=== PATIENT | female | born 1955 | race Caucasian/White ===

== ENCOUNTER 2021-10-15 08:16 | Outpatient (REF) | payer MEDICARE, MEDICAID, SELFPAY ==
[2021-10-15 11:50] LABS: Hemoglobin 13.7 g/dl (12.0-16.0); Mean Corpuscular HGB Conc 31.9 g/dl (31.0-35.0); Mean Corpuscular Hemoglobin 30.1 pg (27.0-33.0); Mean Corpuscular Volume 94.5 fL (80.0-98.0); Mean Platelet Volume 11.6 fL (9.4-12.3); Platelet Count 191 X10*3/uL (160-400); Red Blood Count 4.55 X10*6/uL (4.20-5.50); White Blood Count 6.6 X10*3/uL (4.8-10.8)
[2021-10-15 12:32] LABS: TSH reflex Free T4 5.19 uIU/mL (0.32-4.0); Vitamin D 25-OH Total 27.8 ng/mL (>30)
[2021-10-15 12:33] LABS: Alanine Aminotransferase 36 U/L (0-31); Albumin Level 4.2 g/dL (3.5-5.0); Alkaline Phosphatase 82 U/L (39-117); Anion Gap 13 (12-20); Aspartate Amino Transferase 29 U/L (5-31); Bilirubin Total 0.6 mg/dL (0.0-1.0); Blood Urea Nitrogen 24 mg/dL (9-16); Calcium 9.7 mg/dL (8.4-10.2); Carbon Dioxide 28 mmol/L (22-29); Chloride 105 mmol/L (96-108); Cholesterol 203 mg/dL; Estimated Glomerular Filt Rate > 60; Glucose Fasting 109 mg/dL (60-99); HDL Cholesterol 45 mg/dL; Iron 118 mcg/dL (30-160); LDL Cholesterol Calculated 139 mg/dl; Percent Iron Saturation 41 % (15-50); Potassium 4.4 mmol/L (3.3-5.1); Sodium 142 mmol/L (135-145); Total Iron Binding Capacity 287 mcg/dL (228-428); Total Protein 7.3 g/dL (6.5-8.0); Triglycerides 97 mg/dL; Unsaturated Iron Binding 169 ug/dL
[2021-10-15 12:42] LABS: Vitamin B12 654 pg/mL (200-900)
[2021-10-15 13:29] LABS: Free T4 (Free Thyroxine) 0.72 ng/dL (0.71-1.85)
== END 2021-10-15 08:17 | disposition home or self-care (01) ==
LOC: HO.HMGCLDS 08:16
PROVIDERS: PCP Internal Medicine; Visit Provider Internal Medicine
DX: G25.81 Restless legs syndrome (principal); I10 Essential (primary) hypertension; E55.9 Vitamin D deficiency, unspecified; E53.8 Deficiency of other specified B group vitamins
CPT/HCPCS: 36415; 80053; 80061; 82306; 82607; 83540; 84439; 84443; 85027

== ENCOUNTER 2022-05-16 13:04 | Outpatient (REF) | payer MEDICARE, MEDICAID, SELFPAY ==
[2022-05-16 14:12] LABS: Alanine Aminotransferase 27 U/L (0-31); Albumin Level 4.4 g/dL (3.5-5.0); Alkaline Phosphatase 92 U/L (39-117); Anion Gap 12 (12-20); Aspartate Amino Transferase 24 U/L (5-31); Bilirubin Total 0.7 mg/dL (0.0-1.0); Blood Urea Nitrogen 17 mg/dL (9-16); Calcium 9.7 mg/dL (8.4-10.2); Carbon Dioxide 28 mmol/L (22-29); Chloride 105 mmol/L (96-108); Cholesterol 194 mg/dL; Estimated Glomerular Filt Rate > 60; Glucose Fasting 106 mg/dL (60-99); HDL Cholesterol 47 mg/dL; LDL Cholesterol Calculated 134 mg/dl; Potassium 4.5 mmol/L (3.3-5.1); Sodium 140 mmol/L (135-145); Total Protein 7.5 g/dL (6.5-8.0); Triglycerides 67 mg/dL
[2022-05-16 14:33] LABS: TSH reflex Free T4 5.71 uIU/mL (0.32-4.0)
[2022-05-16 15:06] LABS: Erythrocyte Sedimentation Rate 7 MM/HR (0-20)
[2022-05-16 15:14] LABS: Free T4 (Free Thyroxine) 0.76 ng/dL (0.71-1.85)
[2022-05-18 12:52] LABS: Lyme Abs Screen <0.90 index
== END 2022-05-16 13:05 | disposition home or self-care (01) ==
LOC: HO.HMGCLDS 13:04
PROVIDERS: PCP Internal Medicine; Visit Provider Internal Medicine
DX: M25.562 Pain in left knee (principal); I10 Essential (primary) hypertension
CPT/HCPCS: 36415; 80053; 80061; 84439; 84443; 85652; 86617; 86618

== ENCOUNTER 2022-05-21 15:22 | Outpatient (REF) | payer MEDICARE, MEDICAID, SELFPAY ==
--- NOTE | ~2022-05-21 | XR_ITS ---
EXAMINATION: XR KNEE, LEFT CLINICAL INFORMATION: Pain COMPARISON: None TECHNIQUE: Four views of the left knee. FINDINGS: Bone alignment is normal. No fracture or dislocation is seen. There degenerative changes of the lateral femoral tibial joint with osteophyte formation. There is a moderate joint effusion. XR/XR knee LT 4V IMPRESSION: Degenerative changes of the lateral femoral tibial joint and joint effusion.
== END 2022-05-21 15:23 | disposition home or self-care (01) ==
LOC: HO.HMGCX 15:22
PROVIDERS: PCP Internal Medicine; Visit Provider Internal Medicine
DX: M25.562 Pain in left knee (principal)
CPT/HCPCS: 73564

== ENCOUNTER → 2022-06-20 14:36 | Outpatient (BNVA) | payer MEDICARE, MEDICAID, SELFPAY | PROVIDERS: PCP Internal Medicine; Visit Provider Physician Assistant | DX: M17.12 Unilateral primary osteoarthritis, left knee (principal) | CPT/HCPCS: 20610; 99202; J1040 ==

== ENCOUNTER → 2022-09-23 08:24 | Outpatient (BNVA) | payer MEDICARE, MEDICAID, SELFPAY | PROVIDERS: PCP Internal Medicine; Visit Provider Physician Assistant | DX: M17.12 Unilateral primary osteoarthritis, left knee (principal) | CPT/HCPCS: 20610; 99212; J1040 ==

== ENCOUNTER 2023-06-16 08:58 | Outpatient (AMB) | payer MEDICARE, MEDICAID, SELFPAY ==
--- NOTE | 2023-06-16 09:12 | MHC.OFFVIS ---
Intake Vital Signs 06/16/23 09:15 Height 5 ft 4.5 in Weight 233 lb BMI 39.4 Intake Visit Reasons: OV-OA of LT knee, last inj. 09/23/22 Intake Note: Cesia 68 yr old female presents today for her Left knee O.A pain S/P injection from 09/23/22. States injection lasted approx 2-3 months and would like to repeat injection today. Allergies ropinirole Adverse Reaction (Intermediate, Verified 06/16/23 09:15) fatique, weakness felt like fainting HPI OV-OA of LT knee, last inj. 09/23/22 HPI Details 68-year-old female who returns to the office today for a follow-up of left knee pain. She had her last injection on 09/23/22 which provided her relief for approximately 3 months. She would like to repeat the injection today. [facility] Medical History RLS (restless legs syndrome) Vitamin B 12 deficiency Vitamin D deficiency Social History Housing: House Patient Tobacco Use Status: Never used Tobacco e-Cigarette/Vaping Use: Never Used Current occupational status: retired Cognitive needs: No Hearing needs: No Vision needs: No Review of Systems Const All systems reviewed & are unremarkable except as noted in HPI and below Physical Exam Vital Signs: BMI result Body Mass Index 39.4 Extrem Other: Left knee skin intact, no erythema or joint effusion. Tenderness along the medial joint line. ROM full with crepitus. Negative steinmans. No ligamentous laxity. NVI. Office Procedures Joint Injection/Drain Joint Injection/Drain Primary Site: left knee Prep: site was prepped using aseptic technique, ethochloride spray was applied and injection warnings given Injected: 80 mg of, DepoMedrol, with 8 mL of, 1% plain lidocaine and in the joint Approach Used: anterolateral Procedure: The patient tolerated the procedure well and there was some relief with the local anesthesia Coding 94761 - Glenohumeral/Tronchanteric Bursa/Intraarticular Procedure code (CPT) selection complete Results Reviewed Results Reviewed: 06/16/23 09:13 Lidocaine HCl 2 % MPF [Xylocaine 2 % MPF] 5 ml .ROUTE .STK-MED ONE methylPREDNISolone acetate [DEPO-MedroL] 80 mg .ROUTE .STK-MED ONE Assessment & Plan Assessment & Plan (1) Osteoarthritis of left knee: Code(s): M17.12 - Unilateral primary osteoarthritis, left knee Plan We discussed options today which include steroid injection. They did consent to move forward with the injection, which was tolerated well. I recommended rest, ice and elevation and OTC anti-inflammatories PRN for discomfort. She is going to [place] in the next month and when she returns if she is continuing to have discomfort and limitations with activity, then she will contact the office to discuss other options which may include surgical intervention of her left knee. We will also obtain x-rays of her knee on the next visit. Patient Instructions: Scribed for Sherice Borrego PA-C, by Javed Fonseca senior medical director, on 06/16/2023 at 9:00 AM SHARLA. Laura, Sherice Borrego PA-C, have personally reviewed and agree with the information entered by the scribe. Coding Level of Care Code Est Pt Level 3 (33943) Diagnoses Osteoarthritis of left knee M17.12 CPT Codes Coding - Joint 7: 83508 - Glenohumeral/Tronchanteric Bursa/Intraarticular ([id number])
[2023-06-16 09:15] VITALS: BMI 39.4
== END 2023-06-16 09:46 | disposition home or self-care (01) ==
PROVIDERS: PCP Internal Medicine; Visit Provider Physician Assistant
DX: M17.12 Unilateral primary osteoarthritis, left knee (principal)
CPT/HCPCS: 20610; 99213

== ENCOUNTER → 2023-06-16 08:58 | Outpatient (BNVA) | payer MEDICARE, MEDICAID, SELFPAY | PROVIDERS: PCP Internal Medicine; Visit Provider Physician Assistant | DX: M17.12 Unilateral primary osteoarthritis, left knee (principal); G25.81 Restless legs syndrome | CPT/HCPCS: 20610; 99212; J1040 ==

== ENCOUNTER 2023-06-24 10:53 | Outpatient (AMB) | payer MEDICARE, MEDICAID, SELFPAY ==
--- NOTE | 2023-06-24 11:01 | MHC.PC.OV ---
Vital Signs 06/24/23 11:02 Height 5 ft 4.5 in Weight 229 lb BMI 38.7 BP 130/80 Blood Pressure Location Lt brachial Position Sitting Pulse 76 Pulse Source Pulse Oximeter Pulse Oximetry (%) 96 Oxygen Delivery Method Room Air Intake Visit Reasons: Left Knee Pain Intake Note: Pt is here today for a sick visit. Pt c/o L knee pain and swelling. Allergies ropinirole Adverse Reaction (Intermediate, Verified 06/24/23 11:05) fatique, weakness felt like fainting Medication List - Last Reconciled 06/24/23 by Elsie Aggarwal MD benazepril 40 mg PO DAILY hydrochlorothiazide 25 mg PO DAILY meloxicam 15 mg PO DAILY Tobacco use date assessed: 06/24/23 Fall risk assessment: No Falls in past year Last assessed Fall Risk: 06/24/23 Dental Screening Dental Screen Date: 06/24/23 Did you have a dental visit in the last 12 months?: Yes Did you have a dental problem in the last 6 months where you did not have access to dental care?: No Was dental information given to patient?: Patient has dentist HPI Left Knee Pain HPI Details Pt presents for f/u of hypertension. She has been getting cortisone injections for advanced L knee OA with temporary relief. Pt c/o chronic LBP worse when standing for a long time. Pt denies LE pain or weakness, change in bowel/bladder function. [facility] Medical History RLS (restless legs syndrome) Vitamin B 12 deficiency Vitamin D deficiency Family History (Updated 06/24/23 @ 11:08 by Nuvia Pineda [facility]) Father No problems noted. Mother No problems noted. Social History Housing: House Patient Tobacco Use Status: Never used Tobacco e-Cigarette/Vaping Use: Never Used Current occupational status: retired Cognitive needs: No Hearing needs: No Vision needs: No Questionnaire PHQ-9 Over the last 2 weeks, how often have you been bothered by any of the following problems? 1. Little interest or pleasure in doing things: not at all 2. Feeling down, depressed, or hopeless: not at all 3. Trouble falling or staying asleep, or sleeping too much: not at all 4. Feeling tired or having little energy: not at all 5. Poor appetite or overeating: not at all 6. Feeling bad about yourself - or that you are a failure or have let yourself or your family down: not at all 7. Trouble concentrating on things, such as reading the newspaper or watching television: not at all 8. Moving or speaking so slowly that other people could have noticed. Or the opposite - being so fidgety or restless that you have been moving around a lot more than usual: not at all 9. Thoughts that you would be better off or of hurting yourself in some way: not at all Total score: 0 Depression Screening Interpretation: Negative Source: Developed by Drs. Jesus Nguyen, Linda Herrera, Adis López and colleagues, with an educational ramón from [employer]. Thrive Questionnaire Date Thrive assessed: 06/24/23 I am a: Patient What is your living situation today?: I have a steady place to live Within the past 12 months, did the food you bought not last and you didn't have the money to get more?: Never true Within the past 12 months, did you worry whether your food would run out before you got money to buy more?: Never true Do you have trouble paying for medicines?: No Do you have trouble getting transportation to medical appointments?: No Do you have trouble paying your heating and electricity bill?: No Do you have trouble taking care of your child, family member or friend?: No Do you have trouble with day-to-day activities such as bathing, preparing meals, shopping, managing finances, etc.?: No Are you currently unemployed and looking for a job?: No Are you interested in more education?: No Please select the resources that you would like help with: None Currently or been in a relationship where the following occur: no concerns reported MALU-7 AMB Questionnaire MALU-7 Date MALU - 7 assessed: 06/24/23 Feeling nervous, anxious, or on edge: 0 = Not at all Not being able to stop or control worryin = Not at all Worrying too much about different things: 0 = Not at all Trouble relaxin = Not at all Being so restless that it is hard to sit still: 0 = Not at all Becoming easily annoyed or irritable: 0 = Not at all Feeling afraid as if something awful might happen: 0 = Not at all Total MALU-7 score (0-4 normal; 5-9 mild; 10-14 moderate; 15-21 severe): 0 Source: Developed by Drs. Jesus Nguyen, Linda Herrera, Adis López and colleagues, with an educational ramón from [employer]. Review of Systems Const All systems reviewed & are unremarkable except as noted in HPI and below Reports no additional complaints Eyes Reports no additional complaints ENT Reports no additional complaints Card Reports no additional complaints Resp Reports no additional complaints GI Reports no additional complaints Reports no additional complaints Physical exam (Primary Care) Vital Signs: Last Vital Signs Pulse 76 06/24/23 11:02 BP 130/80 06/24/23 11:02 Pulse Ox 96 06/24/23 11:02 Oxygen Delivery Method Room Air 06/24/23 11:02 BMI result Body Mass Index 38.7 Tobacco/Smoking Status: Tobacco use Status Tobacco use date assessed 06/24/23 06/24/23 11:08 Patient Tobacco Use Status Never used Tobacco 06/24/23 11:08 e-Cigarette/Vaping Use Never Used 06/24/23 11:02 PHQ-9: PHQ-9 Score PHQ-9: Total score 0 06/24/23 11:08 Depression Screening Interpretation: Negative Thrive Assessment: Date of Thrive Assessment Date Thrive assessed 06/24/23 06/24/23 11:08 Currently or been in a relationship where the following occur: no concerns reported Const General: no acute distress HENMN Head: Yes normal to inspection Eyes General: appearance normal, both eyes and all related structures Resp Effort & Inspection: normal respiratory effort Auscultation: clear to auscultation bilaterally Cardio Rhythm: regular rhythm Heart sounds: S1 normal heart sound present and S2 normal heart sound present GI Inspection: Yes normal to inspection Palpation (GI): Soft to palpation Percussion: Yes normal to percussion Back/Spine/Pelvis Other: DORM in L spine, paraspinal tenderness L>R, SLR 90 degrees estrella Assessment and Plan Assessment & Plan (1) Lumbar back pain: Code(s): M54.50 - Low back pain, unspecified Plan: check XR, PT RECOMMENDED, pt is going to [place] in Jul for 6 months (2) Essential hypertension: Code(s): I10 - Essential (primary) hypertension Plan: cont meds (3) Knee pain, left: Code(s): M25.562 - Pain in left knee Plan: f/u with Ortho. ? Hylan inj, WEIGHT LOSS DISCUSSED Orders: Orders XR lumbar spine 2-3V Today M54.50 - Low back pain, unspecified Comprehensive Gays. Panel Fast Today E53.8 - Deficiency of other specified B group vitamins, E55.9 - Vitamin D deficiency, unspecified, I10 - Essential (primary) hypertension, M54.50 - Low back pain, unspecified Complete Blood Count Auto Diff Today E53.8 - Deficiency of other specified B group vitamins, E55.9 - Vitamin D deficiency, unspecified, I10 - Essential (primary) hypertension, M54.50 - Low back pain, unspecified Lipid Panel Today E53.8 - Deficiency of other specified B group vitamins, E55.9 - Vitamin D deficiency, unspecified, I10 - Essential (primary) hypertension, M54.50 - Low back pain, unspecified TSH reflex Free T4 Today E53.8 - Deficiency of other specified B group vitamins, E55.9 - Vitamin D deficiency, unspecified, I10 - Essential (primary) hypertension, M54.50 - Low back pain, unspecified Medications: Refilled benazepril 40 mg PO DAILY 90 tabs 3RF hydrochlorothiazide 25 mg PO DAILY 90 tabs 3RF I10 - Essential (primary) hypertension meloxicam 15 mg PO DAILY 20 tabs 0RF Coding Level of Care Code Est Pt Level 4 (21359) Diagnoses Lumbar back pain M54.50 Essential hypertension I10 Knee pain, left M25.562
[2023-06-24 11:02] VITALS: BP 130/80; PULSE 76; O2SAT 96; BMI 38.7
== END 2023-06-24 11:41 | disposition home or self-care (01) ==
PROVIDERS: PCP Internal Medicine; Visit Provider Internal Medicine
DX: M54.50 Low back pain, unspecified (principal); I10 Essential (primary) hypertension; M25.562 Pain in left knee
CPT/HCPCS: 99214

== ENCOUNTER 2023-06-24 11:32 | Outpatient (REF) | payer MEDICARE, MEDICAID, SELFPAY ==
--- NOTE | ~2023-06-24 | XR_ITS ---
EXAMINATION: XR LUMBOSACRAL SPINE CLINICAL INFORMATION: Lower back pain. COMPARISON: None available. TECHNIQUE: AP and lateral views of the lumbar spine and lateral view of the lumbosacral junction. FINDINGS: There is bony demineralization. Vertebral body heights and alignment are normal. At T11-T12, there is moderate disc space narrowing, with disc phenomenon. At L2-L3, there is mild posterior disc space narrowing and a 3 mm retrolisthesis. At L3-L4, there is mild to moderate posterior disc space narrowing, with vacuum disc phenomenon. At L4-L5, there is mild posterior disc space narrowing, with vacuum disc phenomenon. No acute fracture or spondylolisthesis is seen. There is multi-level thoracolumbar spondylosis. There is facet arthropathy, most pronounced extending from L3-L4 through L5-S1. There are aortoiliac atherosclerotic calcifications. XR/XR lumbar spine 2-3V IMPRESSION: There is multi-level thoracolumbar degenerative disease, spondylosis and facet arthropathy. Degenerative disc disease is most pronounced at T11-T12, L3-L4 and L4-L5.
[2023-06-24 13:31] LABS: MANUAL DIFF FLAG NO
[2023-06-24 13:54] LABS: Basophils Percent Auto 0.5 % (0-2); Eosinophils Absolute Auto 0.2 X10*3/uL (0.0-0.4); Eosinophils Percent Auto 2.6 % (0-4); Hematocrit 44.2 % (37.0-47.0); Hemoglobin 14.4 g/dl (12.0-16.0); Imm Gran Abs Auto 0.03 X10*3/uL (0.00-0.03); Imm Gran Pct Auto 0.4 % (0.0-0.4); Lymphocytes Absolute Auto 3.3 X10*3/uL (1.2-4.9); Lymphocytes Percent Auto 43.7 % (20-40); Mean Corpuscular HGB Conc 32.6 g/dl (31.0-35.0); Mean Corpuscular Hemoglobin 30.2 pg (27.0-33.0); Mean Corpuscular Volume 92.7 fL (80.0-98.0); Mean Platelet Volume 11.6 fL (9.4-12.3); Monocytes Absolute Auto 0.8 X10*3/uL (0.1-1.2); Monocytes Percent Auto 10.2 % (2-11); Neutrophils Absolute Auto 3.2 x10*3/uL (2.0-8.3); Neutrophils Percent Auto 42.6 % (45-73); Platelet Count 210 X10*3/uL (160-400); Red Blood Count 4.77 X10*6/uL (4.20-5.50); Red Cell Distribution Width 13.1 % (11.0-16.0); White Blood Count 7.4 X10*3/uL (4.8-10.8)
[2023-06-24 14:38] LABS: Alanine Aminotransferase 22 U/L (0-31); Albumin Level 4.2 g/dL (3.5-5.0); Alkaline Phosphatase 80 U/L (39-117); Anion Gap 14 (12-20); Aspartate Amino Transferase 20 U/L (5-31); Bilirubin Total 0.7 mg/dL (0.0-1.0); Blood Urea Nitrogen 21 mg/dL (9-16); Calcium 10.1 mg/dL (8.4-10.2); Carbon Dioxide 30 mmol/L (22-29); Chloride 103 mmol/L (96-108); Cholesterol 193 mg/dL; Estimated Glomerular Filt Rate > 60; Glucose Fasting 96 mg/dL (60-99); HDL Cholesterol 50 mg/dL; LDL Cholesterol Calculated 127 mg/dl; Potassium 4.6 mmol/L (3.3-5.1); Sodium 142 mmol/L (135-145); Total Protein 7.7 g/dL (6.5-8.0); Triglycerides 83 mg/dL
[2023-06-24 15:32] LABS: Free T4 (Free Thyroxine) 0.75 ng/dL (0.71-1.85)
== END 2023-06-24 11:33 | disposition home or self-care (01) ==
LOC: HO.HMGCX 11:32
PROVIDERS: PCP Internal Medicine; Visit Provider Internal Medicine
DX: M54.50 Low back pain, unspecified (principal); E53.8 Deficiency of other specified B group vitamins; E55.9 Vitamin D deficiency, unspecified; I10 Essential (primary) hypertension
CPT/HCPCS: 36415; 72100; 80053; 80061; 84439; 84443; 85025

== ENCOUNTER 2023-08-04 10:33 | Outpatient (AMB) | payer MEDICARE, MEDICAID, SELFPAY ==
--- NOTE | 2023-08-04 10:44 | A.OFFVIS_ITS ---
Intake Vital Signs 08/04/23 10:58 Height 5 ft 4.5 in Weight 229 lb BMI 38.7 Intake Visit Reasons: OV - Left Knee Durolane Injection Intake Note: Cesia a 68 year old female who presents today for a left knee Durolane injection. Allergies ropinirole Adverse Reaction (Intermediate, Verified 08/04/23 10:58) fatique, weakness felt like fainting HPI OV - Left Knee Durolane Injection HPI Details 68-year-old female who returns to the [facility] today for a follow-up of left knee Durolane injection. [facility] Medical History RLS (restless legs syndrome) Vitamin B 12 deficiency Vitamin D deficiency Family History (Updated 06/24/23 @ 11:08 by Nuvia Pineda [facility]) Father No problems noted. Mother No problems noted. Social History Housing: House Patient Tobacco Use Status: Never used Tobacco e-Cigarette/Vaping Use: Never Used Current occupational status: retired Cognitive needs: No Hearing needs: No Vision needs: No Review of Systems Const All systems reviewed & are unremarkable except as noted in HPI and below Physical Exam Vital Signs: BMI result Body Mass Index 38.7 Extrem Other: Left knee skin intact, no erythema or joint effusion. Tenderness along the medial joint line. ROM full with crepitus. Negative steinmans. No ligamentous laxity. NVI. Office Procedures Joint Injection/Drain Joint Injection/Drain Details: Hyaluronate Sodium, Stabilized [Durolane] 60 mg INTRAARTIC .STK-MED ONE Primary Site: left knee Prep: site was prepped using aseptic technique, ethochloride spray was applied and injection warnings given Injected: in the joint Approach Used: anterolateral Procedure: The patient tolerated the procedure well and there was some relief with the local anesthesia Coding 39994 - Glenohumeral/Tronchanteric Bursa/Intraarticular Procedure code (CPT) selection complete Results Reviewed Results Reviewed: 08/04/23 10:43 Hyaluronate Sodium, Stabilized [Durolane] 60 mg INTRAARTIC .STK-MED ONE Assessment & Plan Assessment & Plan (1) Osteoarthritis of left knee: Code(s): M17.12 - Unilateral primary osteoarthritis, left knee Plan We discussed options today which include durolane injection. They did consent to move forward with the left knee durolane injection, which was tolerated well. I recommended rest, ice and elevation and OTC anti-inflammatories PRN for discomfort. If symptoms persist or worsens over the next 6-8 weeks, patient will contact the office, otherwise follow-up as needed. Patient Instructions: Scribed for Sherice Borrego PA-C, by Javed Fonseca medical professionals, on 08/04/2023 at 10:45 AM EST. I, Sherice Borrego PA-C, have personally reviewed and agree with the information entered by the scribe. Coding Level of Care Code Procedure Only Diagnoses Osteoarthritis of left knee M17.12 CPT Codes Coding - Joint 7: 42124 - Glenohumeral/Tronchanteric Bursa/Intraarticular ([id number])
[2023-08-04 10:58] VITALS: BMI 38.7
== END 2023-08-04 11:22 | disposition home or self-care (01) ==
PROVIDERS: PCP Internal Medicine; Visit Provider Physician Assistant
DX: M17.12 Unilateral primary osteoarthritis, left knee (principal)
CPT/HCPCS: 20610

== ENCOUNTER → 2023-08-04 10:33 | Outpatient (BNVA) | payer MEDICARE, MEDICAID, SELFPAY | PROVIDERS: PCP Internal Medicine; Visit Provider Physician Assistant | DX: M17.12 Unilateral primary osteoarthritis, left knee (principal) | CPT/HCPCS: 20610; J7318 ==

== ENCOUNTER 2024-02-24 11:44 | Outpatient (AMB) | payer MEDICARE, MEDICAID, SELFPAY ==
--- NOTE | 2024-02-24 12:15 | AM.OFFVISMDC ---
Intake Vital Signs 02/24/24 12:17 Weight 226 lb BP 120/80 Blood Pressure Location Lt brachial Position Sitting Pulse 68 Pulse Source Pulse Oximeter Pulse Oximetry (%) 98 Oxygen Delivery Method Room Air Intake Visit Reasons: SWV Allergies ropinirole Adverse Reaction (Intermediate, Verified 02/24/24 12:17) fatique, weakness felt like fainting Medication List - Last Reconciled 02/24/24 by Elsie Aggarwal MD benazepril 40 mg PO DAILY hydrochlorothiazide 25 mg PO DAILY meloxicam 15 mg PO DAILY Do you need a note to return to daycare/school/sports/work: No HPI SWV HPI Details Initiated the conversation about Advanced Directives. Advanced Directives help? patients prepare for current and future decisions about their medical treatment? and place of care. Discussed with patient that it is a process where a patients? current condition and prognosis are reviewed, their wishes for information? regarding their illness are elicited, and likely medical dilemmas are presented? and options discussed. The form can be amended as needed, reviewed yearly and? make changes as needed IPPE/AWV ? year old presents? for her ? Annual? Wellness Visit, initial visit.? Medical / Social History Reviewed? Past Medical History ?Yes? . ? [facility]? of Care / Care Team list updated ?Yes . ? Surgical/Hospitalization? History ?Yes . ? Current Medications? (including OTC and supplements) ?Yes . ? Family History ?Yes? . ? Tobacco? Control form ?Yes . ? AUDIT-C (Alcohol use) form? ?Yes . ? Illicit drug use in Social? History ?Yes . ? Current diagnosis of? depression? ?No ? Appropriate PHQ2/PHQ9? completed ?Yes . ? Data entered by ?[employer] [employer] and reviewed by provider ? Fall Risk ? Fall? History? Have you had any falls with? injury in the past year? ?No . ? Have you had two or more? falls in the past year? ?No . ? Fall Risk Assessment: ?No? falls in the past year . ? HRA filled out by? the patient, reviewed by Provider and scanned. ? IPPE/AWV ? Balance? Romberg? ?Yes . ? Tandem? walk ?Yes . ? Walk and? Turn ?Yes . ? Rise from? sit to stand ?Yes . ?Vision? Corrective? lens ?Yes ? Vision? screen ? Up-to-date, has an appointment [] for vision? screening and glaucoma screening ?Hearing? Whisper? test ?pass .? Initiated the conversation about Advanced Directives. Advanced Directives help? patients prepare for current and future decisions about their medical treatment? and place of care. Discussed with patient that it is a process where a patients? current condition and prognosis are reviewed, their wishes for information? regarding their illness are elicited, and likely medical dilemmas are presented? and options discussed. The form can be amended as needed, reviewed yearly and? make changes as needed Written? Plan?Completed. See Patient? Documents. [facility] Medical History Vitamin B 12 deficiency Vitamin D deficiency RLS (restless legs syndrome) Family History Father No problems noted. Mother No problems noted. Social History Housing: House Patient Tobacco Use Status: Never used Tobacco e-Cigarette/Vaping Use: Never Used Current occupational status: retired Cognitive needs: No Hearing needs: No Vision needs: No Questionnaire Medicare Wellness Checkup [age] 65-70 What gender do you identify with?: female During the past 4 weeks, how much have you been bothered by emotional problems such as feeling anxious, depressed, irritable, sad or downhearted, and blue?: not at all During the past 4 weeks, has your physical & emotional health limited your social activities with family, friends, neighbors, or groups?: not at all During the past 4 weeks, how much bodily pain have you generally had?: mild pain During the past 4 weeks, was someone available to help you if you needed & wanted help?: yes, as much as I wanted During the past 4 weeks, what was the hardest physical activity you could do for at least 2 minutes?: light Can you get to places out of walking distance without help? (For eg., can you travel alone on buses, taxis or drive your car?): Yes Can you go shopping for groceries or clothes without someone's help?: Yes Can you prepare your own meals?: Yes Can you do your housework without help?: Yes Because of any health problems, do you need the help of another person with your personal care needs such as eating, bathing, dressing or getting around the house?: No Can you handle your own money without help?: Yes Mini Mental State Exam (MMSE) Orientation What is the (year) (season) (date) (day) (month)?: year, season, date, day and month Where are we (state) (county) (town or city) (hospital) (floor)?: state, county, town or city, hospital/clinic and floor Registration Name of 3 unrelated objects clearly and slowly, then ask patient to repeat all 3 of them. ( repeat determines score. Make sure they can repeat all three): object 1, object 2 and object 3 Attention & Calculation (CHOOSE ONE) Spell WORLD backwards (DLROW): 5 letters Recall Ask patient to repeat the 3 items from question #3.: object 1, object 2 and object 3 Language Show patient a wristwatch & ask what it is. Repeat for pencil.: watch and pencil Ask the patient to repeat the phrase 'No ifs, ands, or buts' after you.: correct Ask the patient to 'take a piece of paper with their right hand' 'fold paper in half' 'place paper on floor': take paper in right hand, fold paper in half and place paper on floor Print the sentence 'CLOSE YOUR EYES' on a piece. If patient actually closes eyes then score.: followed written direction Give patient a blank piece of paper & ask to write a sentence. Score if it contains a noun & verb.: sentence contains subject and verb Score Score: 29 Review of Systems Const All systems reviewed & are unremarkable except as noted in HPI and below Reports no additional complaints Eyes Reports no additional complaints ENT Reports no additional complaints Card Reports no additional complaints Resp Reports no additional complaints GI Reports no additional complaints Reports no additional complaints Physical Exam Vital Signs: Last Vital Signs Pulse 68 02/24/24 12:17 BP 120/80 02/24/24 12:17 Pulse Ox 98 02/24/24 12:17 Oxygen Delivery Method Room Air 02/24/24 12:17 Const General: no acute distress HEENT Head: Yes normal to inspection Ears: hearing grossly normal bilaterally Eyes General: appearance normal, both eyes and all related structures Neck Neck: Yes no lymphadenopathy and Yes supple Resp Effort & Inspection: normal respiratory effort Auscultation: clear to auscultation bilaterally Cardio Rhythm: regular rhythm Heart sounds: S1 normal heart sound present and S2 normal heart sound present GI Inspection: Yes normal to inspection Palpation (GI): Soft to palpation Percussion: Yes normal to percussion Auscultation: normal bowel sounds Extrem General: Yes no clubbing, cyanosis or edema Assessment & Plan Assessment & Plan (1) Essential hypertension: Code(s): I10 - Essential (primary) hypertension Plan: Continue current medications (2) Vitamin D deficiency: Code(s): E55.9 - Vitamin D deficiency, unspecified Plan: Continue vitamin-D supplement (3) Vitamin B 12 deficiency: Code(s): E53.8 - Deficiency of other specified B group vitamins Plan: Continue B12 supplement (4) Annual physical exam: Code(s): Z00.00 - Encounter for general adult medical examination without abnormal findings Plan: Well-balanced diet regular physical activity weight loss discussed with the patient (5) Postmenopausal: Code(s): Z78.0 - Asymptomatic menopausal state Plan: Check DEXA Plan Check DEXA Orders: Orders MM screening mammo BI Today E53.8 - Deficiency of other specified B group vitamins, E55.9 - Vitamin D deficiency, unspecified, I10 - Essential (primary) hypertension, Z00.00 - Encounter for general adult medical examination without abnormal findings, Z12.31 - Encounter for screening mammogram for malignant neoplasm of breast Comprehensive [place]. Panel Fast Today E53.8 - Deficiency of other specified B group vitamins, E55.9 - Vitamin D deficiency, unspecified, I10 - Essential (primary) hypertension, Z00.00 - Encounter for general adult medical examination without abnormal findings Lipid Panel Today E53.8 - Deficiency of other specified B group vitamins, E55.9 - Vitamin D deficiency, unspecified, I10 - Essential (primary) hypertension, Z00.00 - Encounter for general adult medical examination without abnormal findings Vitamin B12 and Folate Today E53.8 - Deficiency of other specified B group vitamins, E55.9 - Vitamin D deficiency, unspecified, Z00.00 - Encounter for general adult medical examination without abnormal findings Complete Blood Count Auto Diff Today E53.8 - Deficiency of other specified B group vitamins, E55.9 - Vitamin D deficiency, unspecified, I10 - Essential (primary) hypertension, Z00.00 - Encounter for general adult medical examination without abnormal findings TSH reflex Free T4 Today E53.8 - Deficiency of other specified B group vitamins, E55.9 - Vitamin D deficiency, unspecified, I10 - Essential (primary) hypertension, Z00.00 - Encounter for general adult medical examination without abnormal findings UA w Microscopic Today E53.8 - Deficiency of other specified B group vitamins, E55.9 - Vitamin D deficiency, unspecified, I10 - Essential (primary) hypertension, Z00.00 - Encounter for general adult medical examination without abnormal findings Vitamin D 25-OH Total Today E53.8 - Deficiency of other specified B group vitamins, E55.9 - Vitamin D deficiency, unspecified, Z00.00 - Encounter for general adult medical examination without abnormal findings XR DEXA axial skeleton Today Z78.0 - Asymptomatic menopausal state, Z98.890 - Other specified postprocedural states Patient Instructions: Goals: Well controlled hypertension Barriers:none Coding Level of Care Code Medicare Subsequent (G0439) Diagnoses Essential hypertension I10 Vitamin D deficiency E55.9 Vitamin B 12 deficiency E53.8 Annual physical exam Z00.00 Postmenopausal Z78.0 CPT Codes Advance Care Planning - Time spent: 1-15 minutes, not on file ([id number]) Advance Care Planning Advance Care Planning discussion: Exists, not on file Forms completed: Health Care Proxy Time spent: 1-15 minutes, not on file
[2024-02-24 12:17] VITALS: BP 120/80; PULSE 68; O2SAT 98
== END 2024-02-24 12:59 | disposition home or self-care (01) ==
PROVIDERS: PCP Internal Medicine; Visit Provider Internal Medicine
DX: I10 Essential (primary) hypertension (principal); E55.9 Vitamin D deficiency, unspecified; E53.8 Deficiency of other specified B group vitamins; Z00.00 Encounter for general adult medical examination without abnormal findings; Z78.0 Asymptomatic menopausal state
CPT/HCPCS: 1124F; G0439

== ENCOUNTER 2024-05-14 09:34 | Outpatient (REF) | payer MEDICARE, MEDICAID, SELFPAY ==
[2024-05-14 13:16] LABS: Appearance Urine Clear; Color Urine Yellow; Glucose Urine UA Negative (Negative); Leukocyte Esterase Urine Large (3+) (Negative); Nitrite Urine Negative (Negative); Specific Gravity - Urine 1.015 (1.005-1.025); UMIC TRIGGER UA YES; Urine Blood Small (1+) (Negative); Urine Ketones Negative (Negative); Urine Protein Negative (Neg-Trace)
[2024-05-14 13:21] LABS: MANUAL DIFF FLAG NO
[2024-05-14 13:26] LABS: Bacteria Urine None Seen (None Seen); Hyaline Casts Urine 0-2 /LPF (0-2); Squamous Epithelial Cell Urine 0-2 /HPF (0-2); WBC Urine 21-50 /HPF (0-5)
[2024-05-14 13:41] LABS: Basophils Percent Auto 0.3 % (0-2); Eosinophils Absolute Auto 0.2 X10*3/uL (0.0-0.4); Eosinophils Percent Auto 2.7 % (0-4); Hematocrit 42.5 % (37.0-47.0); Imm Gran Abs Auto 0.01 X10*3/uL (0.00-0.03); Imm Gran Pct Auto 0.2 % (0.0-0.4); Lymphocytes Absolute Auto 2.6 X10*3/uL (1.2-4.9); Mean Corpuscular HGB Conc 32.9 g/dl (31.0-35.0); Mean Corpuscular Hemoglobin 30.8 pg (27.0-33.0); Mean Corpuscular Volume 93.4 fL (80.0-98.0); Mean Platelet Volume 10.8 fL (9.4-12.3); Monocytes Absolute Auto 0.7 X10*3/uL (0.1-1.2); Monocytes Percent Auto 11.1 % (2-11); Neutrophils Absolute Auto 2.6 x10*3/uL (2.0-8.3); Neutrophils Percent Auto 42.7 % (45-73); Platelet Count 207 X10*3/uL (160-400); Red Blood Count 4.55 X10*6/uL (4.20-5.50); Red Cell Distribution Width 12.6 % (11.0-16.0)
[2024-05-14 13:44] LABS: Alanine Aminotransferase 23 U/L (0-31); Albumin Level 4.2 g/dL (3.5-5.0); Alkaline Phosphatase 76 U/L (39-117); Anion Gap 12 (12-20); Aspartate Amino Transferase 24 U/L (5-31); Bilirubin Total 0.7 mg/dL (0.0-1.0); Blood Urea Nitrogen 18 mg/dL (9-16); Carbon Dioxide 29 mmol/L (22-29); Chloride 104 mmol/L (96-108); Cholesterol 193 mg/dL (<200); Estimated Glomerular Filt Rate > 60; Glucose Fasting 105 mg/dL (60-99); HDL Cholesterol 47 mg/dL (>40); LDL Cholesterol Calculated 131 mg/dL (<100); Potassium 4.5 mmol/L (3.3-5.1); Sodium 140 mmol/L (135-145); Total Protein 7.6 g/dL (6.5-8.0); Triglycerides 75 mg/dL (<150)
[2024-05-14 14:07] LABS: TSH reflex Free T4 5.63 uIU/mL (0.32-4.0)
[2024-05-14 14:08] LABS: Folate 11.3 ng/mL (> or = 4.0); Vitamin B12 575 pg/mL (200-900)
[2024-05-14 14:41] LABS: Free T4 (Free Thyroxine) 0.66 ng/dL (0.71-1.85)
== END 2024-05-14 09:35 | disposition home or self-care (01) ==
LOC: HO.HMGCLDS 09:34
PROVIDERS: PCP Internal Medicine; Visit Provider Internal Medicine
DX: Z00.00 Encounter for general adult medical examination without abnormal findings (principal); E55.9 Vitamin D deficiency, unspecified; E53.8 Deficiency of other specified B group vitamins; I10 Essential (primary) hypertension
CPT/HCPCS: 36415; 80053; 80061; 81001; 82306; 82607; 82746; 84439; 84443; 85025

== ENCOUNTER 2024-06-07 08:06 | Outpatient (REF) | payer MEDICARE, MEDICAID, SELFPAY ==
[2024-06-07 10:53] LABS: TSH reflex Free T4 3.57 uIU/mL (0.32-4.0)
[2024-06-07 11:30] LABS: Appearance Urine Cloudy; Color Urine Yellow; Glucose Urine UA Negative (Negative); Leukocyte Esterase Urine Large (3+) (Negative); Nitrite Urine Negative (Negative); PH 6.5 (5.0-9.0); Specific Gravity - Urine 1.025 (1.005-1.025); UMIC TRIGGER UA YES; Urine Blood Moderate (2+) (Negative); Urine Ketones Negative (Negative); Urine Protein Trace mg/dL (Neg-Trace)
[2024-06-07 11:33] LABS: Bacteria Urine None Seen (None Seen); Hyaline Casts Urine 0-2 /LPF (0-2); RBC Urine >20 /HPF (0-2); WBC Urine >50 /HPF (0-5)
== END 2024-06-07 08:07 | disposition home or self-care (01) ==
LOC: HO.HMGCLDS 08:06
PROVIDERS: PCP Internal Medicine; Visit Provider Internal Medicine
DX: E03.9 Hypothyroidism, unspecified (principal); N39.0 Urinary tract infection, site not specified
CPT/HCPCS: 36415; 81001; 84443

== ENCOUNTER 2024-06-07 08:30 | Outpatient (AMB) | payer MEDICARE, MEDICAID, SELFPAY ==
--- NOTE | 2024-06-07 08:50 | A.OFFPC_ITS ---
Vital Signs 06/07/24 08:55 Height 5 ft 4.5 in Weight 226 lb BMI 38.2 BP 128/80 Blood Pressure Location Lt brachial Position Sitting Pulse 71 Pulse Source Pulse Oximeter Pulse Oximetry (%) 98 Oxygen Delivery Method Room Air Intake Visit Reasons: Follow up Intake Note: Pt is here today for a follow up visit. Pt is here as she noticed pink spots on her pad. Allergies ropinirole Adverse Reaction (Intermediate, Verified 06/07/24 08:58) fatique, weakness felt like fainting Medication List - Last Reconciled 06/07/24 by Elsie Aggarwal MD benazepril 40 mg PO DAILY clotrimazole-betamethasone 1-0.05 % 1 appl topical BID hydrochlorothiazide 25 mg PO DAILY levothyroxine 50 mcg PO DAILY meloxicam 15 mg PO DAILY solifenacin 5 mg PO DAILY Wegovy (semaglutide (weight loss)) 0.25 mg (0.5 mL) subcut QWEEK NS Tobacco use date assessed: 06/07/24 Fall risk assessment: No Falls in past year Last assessed Fall Risk: 06/07/24 Dental Screening Dental Screen Date: 06/07/24 Did you have a dental visit in the last 12 months?: Yes Did you have a dental problem in the last 6 months where you did not have access to dental care?: No Was dental information given to patient?: Patient has dentist HPI Follow up HPI Details Patient presents for the follow-up on hypertension and hypothyroidism stable on current medications. She has been trying to lose weight eating less calories and be more physically active for the last 3 months and has been unsuccessful. She would like to try Wegovy to facilitate weight loss [facility] Medical History Vitamin B 12 deficiency Vitamin D deficiency RLS (restless legs syndrome) Family History Father No problems noted. Mother No problems noted. Social History Housing: House Patient Tobacco Use Status: Never used Tobacco e-Cigarette/Vaping Use: Never Used service: No Current occupational status: retired Cognitive needs: No Hearing needs: No Vision needs: No Questionnaire PHQ-9 Over the last 2 weeks, how often have you been bothered by any of the following problems? 1. Little interest or pleasure in doing things: not at all 2. Feeling down, depressed, or hopeless: not at all 3. Trouble falling or staying asleep, or sleeping too much: not at all 4. Feeling tired or having little energy: not at all 5. Poor appetite or overeating: not at all 6. Feeling bad about yourself - or that you are a failure or have let yourself or your family down: not at all 7. Trouble concentrating on things, such as reading the newspaper or watching television: not at all 8. Moving or speaking so slowly that other people could have noticed. Or the opposite - being so fidgety or restless that you have been moving around a lot more than usual: not at all 9. Thoughts that you would be better off or of hurting yourself in some way: not at all Total score: 0 Depression Screening Interpretation: Negative Depression Screening Done: Yes Source: Developed by Drs. Jesus Nguyen, Linda Herrera, Adis López and colleagues, with an educational ramón from [employer]. Thrive Questionnaire Date Thrive assessed: 06/07/24 I am a: Patient What is your living situation today?: I have a steady place to live Within the past 12 months, did the food you bought not last and you didn't have the money to get more?: Never true Within the past 12 months, did you worry whether your food would run out before you got money to buy more?: Never true Do you have trouble paying for medicines?: No Do you have trouble getting transportation to medical appointments?: No Do you have trouble paying your heating and electricity bill?: No Do you have trouble taking care of your child, family member or friend?: No Do you have trouble with day-to-day activities such as bathing, preparing meals, shopping, managing finances, etc.?: No Are you currently unemployed and looking for a job?: No Are you interested in more education?: No Please select the resources that you would like help with: Housing/Long Term Currently or been in a relationship where the following occur: I choose not to answer THRIVE Score: 0 AUDIT C Alcohol Use Questionnaire (AUDIT-C) 1. How often do you have a drink containing alcohol?: Never Total Score: 0 MALU-7 AMB Questionnaire MALU-7 Date MALU - 7 assessed: 06/07/24 Feeling nervous, anxious, or on edge: 0 = Not at all Not being able to stop or control worryin = Not at all Worrying too much about different things: 0 = Not at all Trouble relaxin = Not at all Being so restless that it is hard to sit still: 0 = Not at all Becoming easily annoyed or irritable: 0 = Not at all Feeling afraid as if something awful might happen: 0 = Not at all Total MALU-7 score (0-4 normal; 5-9 mild; 10-14 moderate; 15-21 severe): 0 Source: Developed by Drs. Jesus Nguyen, Linda Herrera, Adis López and colleagues, with an educational ramón from [employer]. Review of Systems Const All systems reviewed & are unremarkable except as noted in HPI and below ENT Reports no additional complaints Card Reports no additional complaints Resp Reports no additional complaints GI Reports no additional complaints Reports no additional complaints Physical exam (Primary Care) Vital Signs: Last Vital Signs Pulse 71 06/07/24 08:55 BP 128/80 06/07/24 08:55 Pulse Ox 98 06/07/24 08:55 Oxygen Delivery Method Room Air 06/07/24 08:55 BMI result Body Mass Index 38.2 Tobacco/Smoking Status: Tobacco use Status Tobacco use date assessed 06/07/24 06/07/24 09:01 Patient Tobacco Use Status Never used Tobacco 06/07/24 09:01 e-Cigarette/Vaping Use Never Used 06/07/24 08:52 PHQ-9: PHQ-9 Score PHQ-9: Total score 0 06/07/24 09:01 Depression Screening Interpretation: Negative Thrive Assessment: Date of Thrive Assessment Date Thrive assessed 06/07/24 06/07/24 09:01 Currently or been in a relationship where the following occur: I choose not to answer Const General: no acute distress HENMT Head: Yes normal to inspection Neck Neck: Yes supple Resp Effort & Inspection: normal respiratory effort Auscultation: clear to auscultation bilaterally Cardio Rhythm: regular rhythm Heart sounds: S1 normal heart sound present and S2 normal heart sound present GI Inspection: Yes normal to inspection Palpation (GI): Soft to palpation Percussion: Yes normal to percussion Auscultation: normal bowel sounds Assessment and Plan Assessment & Plan (1) Hypothyroid: Code(s): E03.9 - Hypothyroidism, unspecified Plan: Increase levothyroxine to 50 mcg and check TSH in 2 months (2) Essential hypertension: Code(s): I10 - Essential (primary) hypertension Plan: Continue current medications (3) BMI 38.0-38.9,adult: Code(s): Z68.38 - Body mass index [BMI] 38.0-38.9, adult Plan: FOR OBESITY DESPITE DECREASING CALORIC INTAKE AND REGULAR EXERCISE WEGOVY 0.25 WILL BE TRIED. PATIENT WILL FOLLOW-UP IN 3 months Orders: Orders TSH reflex Free T4 2 Months E03.9 - Hypothyroidism, unspecified, I10 - Essential (primary) hypertension Medications: New Wegovy (semaglutide (weight loss)) 0.25 mg (0.5 mL) subcut QWEEK 2 mL 3RF NS levothyroxine 50 mcg PO DAILY 90 tabs 1RF solifenacin 5 mg PO DAILY 90 tabs 0RF Discontinued levothyroxine Discontinued Reason: Doctor's Order 25 mcg PO DAILY 90 tabs 0RF Coding Level of Care Code Est Pt Level 4 (46769) Diagnoses Hypothyroid E03.9 Essential hypertension I10 BMI 38.0-38.9,adult Z68.38
[2024-06-07 08:55] VITALS: BP 128/80; PULSE 71; O2SAT 98; BMI 38.2
== END 2024-06-07 12:38 | disposition home or self-care (01) ==
PROVIDERS: PCP Internal Medicine; Visit Provider Internal Medicine
DX: E03.9 Hypothyroidism, unspecified (principal); I10 Essential (primary) hypertension; Z68.38 Body mass index [BMI] 38.0-38.9, adult
CPT/HCPCS: 99214

== ENCOUNTER 2024-08-02 07:40 | Outpatient (REF) | payer MEDICARE, MEDICAID, SELFPAY ==
[2024-08-02 11:20] LABS: TSH reflex Free T4 5.61 uIU/mL (0.32-4.0)
[2024-08-02 12:01] LABS: Free T4 (Free Thyroxine) 0.61 ng/dL (0.71-1.85)
== END 2024-08-02 07:41 | disposition home or self-care (01) ==
LOC: HO.HMGCLDS 07:40
PROVIDERS: PCP Internal Medicine; Visit Provider Internal Medicine
DX: E03.9 Hypothyroidism, unspecified (principal); I10 Essential (primary) hypertension
CPT/HCPCS: 36415; 84439; 84443

== ENCOUNTER 2025-09-05 07:59 | Outpatient (REF) | payer MEDICARE, MEDICAID, SELFPAY ==
--- OUTSIDE RECORDS SUMMARY | 2025-09-05 08:03 | XMS_ITS | Patient Health Record ---
Author Organization [facility] Address [address] [place] [address] Care Team Providers Care Chest Painting And Sealing Supervisor Name Role Phone Elsie Aggarwal MD Primary Care Provider Jeremya Caitie Eric Unavailable [phone] Reason For Referral No Information Medications Medication SIG (Take, Route, Frequency, Duration) Notes Start Date End Date Status hydroCHLOROthiazide 25mg 1 ORAL daily; Duration: -3 Royce-MJ 03/28/2014 Active Benazepril HCl N/A; Duration: -3 Royce-MJ 03/28/2014 Active Problems Problem Type SNOMED Code ICD Code Onset Dates Problem Status W/U Status Risk Notes Problem Obesity (959804141) Obesity, unspecified (278.00) Active confirmed Major Problem Benign essential hypertension (5597981) Essential hypertension, benign (401.1) Active confirmed Major Problem Gynecological examination normal ([id number]) Routine gynecological examination (V72.31) Active confirmed Diag Plan Of Treatment No Information Insurance Providers Payer Name Payer Address Payer Phone Subscriber Number Group Number Insured Name Patient Relationship to Insured Coverage Start Date Coverage End Date [facility] [address] [address] [place] [address] [id number] ZOE MONDRAGON Self - patient is the insured
[2025-09-05 11:50] LABS: Free T4 (Free Thyroxine) 0.67 ng/dL (0.71-1.85)
== END 2025-09-05 08:00 | disposition home or self-care (01) ==
LOC: HO.HMGCLDS 07:59
PROVIDERS: PCP Internal Medicine; Visit Provider Internal Medicine
DX: E03.9 Hypothyroidism, unspecified (principal)
CPT/HCPCS: 36415; 84439; 84443

== ENCOUNTER 2025-09-13 10:18 | Outpatient (AMB) | payer MEDICARE, MEDICAID, SELFPAY ==
--- NOTE | 2025-09-13 10:30 | MHC.PC.OV ---
Vital Signs 09/13/25 10:31 Height 5 ft 4.5 in Weight 227 lb BMI 38.4 BP 128/80 Blood Pressure Location Lt brachial Position Sitting Respiration 16 Pulse 74 Pulse Source Pulse Oximeter Temp 97.9 F Temp Source Oral Pulse Oximetry (%) 95 Oxygen Delivery Method Room Air Intake Visit Reasons: Follow up. Allergies ropinirole Adverse Reaction (Intermediate, Verified 09/13/25 10:37) fatique, weakness felt like fainting Medication List - Last Reconciled 09/13/25 by Elsie Aggarwal MD benazepril 40 mg PO DAILY clotrimazole-betamethasone 1-0.05 % 1 appl topical BID hydrochlorothiazide 25 mg PO DAILY levothyroxine 75 mcg PO DAILY solifenacin 5 mg PO DAILY Tobacco use date assessed: 09/13/25 Fall risk assessment: No Falls in past year Last assessed Fall Risk: 09/13/25 Dental Screening Dental Screen Date: 09/13/25 Did you have a dental visit in the last 12 months?: No Did you have a dental problem in the last 6 months where you did not have access to dental care?: No Was dental information given to patient?: Patient declined HPI Follow up. HPI Details Pt presents for f/u HTN, hypothyroid. Pt had L knee arthroplasty in [place] in February and recovered well. She spent 6 months in [place] PENDING SALE TO [facility] Medical History (Updated 09/13/25 @ 15:27 by Elsie Aggarwal MD) BMI 38.0-38.9,adult Hypothyroid Essential hypertension Hx of screening mammography Vitamin B 12 deficiency Vitamin D deficiency RLS (restless legs syndrome) Surgical History (Updated 09/13/25 @ 11:25 by Elsie Aggarwal MD) S/P left knee arthroscopy Hx of colonoscopy Hx of left knee surgery Family History Father No problems noted. Mother No problems noted. Social History Housing: House Patient Tobacco Use Status: Never used Tobacco e-Cigarette/Vaping Use: Never Used service: No Current occupational status: retired Cognitive needs: No Hearing needs: No Vision needs: No Questionnaire Thrive Questionnaire Date Thrive assessed: 06/07/24 MALU-7 AMB Questionnaire MALU-7 Date MALU - 7 assessed: 06/07/24 Source: Developed by Drs. Jesus Nguyen, Linda Herrera, Adis López and colleagues, with an educational ramón from [employer]. Review of Systems Const All systems reviewed & are unremarkable except as noted in HPI and below ENT Reports no additional complaints Card Reports no additional complaints Resp Reports no additional complaints GI Reports no additional complaints Reports no additional complaints Musc Reports no additional complaints Physical exam (Primary Care) Vital Signs: Last Vital Signs Temp 97.9 F 09/13/25 10:31 Pulse 74 09/13/25 10:31 Resp 16 09/13/25 10:31 BP 128/80 09/13/25 10:31 Pulse Ox 95 09/13/25 10:31 Oxygen Delivery Method Room Air 09/13/25 10:31 BMI result Body Mass Index 38.4 Tobacco/Smoking Status: Tobacco use Status Tobacco use date assessed 09/13/25 09/13/25 10:40 Patient Tobacco Use Status Never used Tobacco 09/13/25 10:40 e-Cigarette/Vaping Use Never Used 09/13/25 10:30 Thrive Assessment: Date of Thrive Assessment Date Thrive assessed 06/07/24 09/13/25 10:30 Const General: no acute distress HENMT Head: Yes normal to inspection Mouth: Normal oral and palatal mucosa present Neck Neck: Yes supple Resp Effort & Inspection: normal respiratory effort Auscultation: clear to auscultation bilaterally Cardio Rhythm: regular rhythm Heart sounds: S1 normal heart sound present and S2 normal heart sound present GI Inspection: Yes normal to inspection Palpation (GI): Soft to palpation Percussion: Yes normal to percussion Auscultation: normal bowel sounds Coding Level of Care Code Est Pt Level 4 (89888) Diagnoses Hx of screening mammography Z92.89 Essential hypertension I10 Vitamin D deficiency E55.9 Hypothyroid E03.9 Assessment & Plan Assessment & Plan (1) Hx of screening mammography: Comment: 02/2025 in [place] Code(s): Z92.89 - Personal history of other medical treatment Category: Medical Plan: Up-to-date with mammogram (2) Essential hypertension: Code(s): I10 - Essential (primary) hypertension Category: Medical Plan: Continue current medications (3) Vitamin D deficiency: Code(s): E55.9 - Vitamin D deficiency, unspecified Category: Medical Plan: Continue vitamin-D supplement (4) Hypothyroid: Code(s): E03.9 - Hypothyroidism, unspecified Category: Medical Plan: Patient will restart levothyroxine and have TSH level checked in 6 weeks Orders: Orders Comprehensive Freedom. Panel Fast 6 Weeks E03.9 - Hypothyroidism, unspecified, E53.8 - Deficiency of other specified B group vitamins, E55.9 - Vitamin D deficiency, unspecified, I10 - Essential (primary) hypertension Complete Blood Count Auto Diff 6 Weeks E03.9 - Hypothyroidism, unspecified, E53.8 - Deficiency of other specified B group vitamins, E55.9 - Vitamin D deficiency, unspecified, I10 - Essential (primary) hypertension Hemoglobin A1c 6 Weeks E03.9 - Hypothyroidism, unspecified, E53.8 - Deficiency of other specified B group vitamins, E55.9 - Vitamin D deficiency, unspecified, I10 - Essential (primary) hypertension UA w Microscopic 6 Weeks E03.9 - Hypothyroidism, unspecified, E53.8 - Deficiency of other specified B group vitamins, E55.9 - Vitamin D deficiency, unspecified, I10 - Essential (primary) hypertension Vitamin B12 and Folate 6 Weeks E03.9 - Hypothyroidism, unspecified, E53.8 - Deficiency of other specified B group vitamins, E55.9 - Vitamin D deficiency, unspecified, I10 - Essential (primary) hypertension Lipid Panel 6 Weeks E03.9 - Hypothyroidism, unspecified, E53.8 - Deficiency of other specified B group vitamins, E55.9 - Vitamin D deficiency, unspecified, I10 - Essential (primary) hypertension Vitamin D 25-OH Total 6 Weeks E03.9 - Hypothyroidism, unspecified, E53.8 - Deficiency of other specified B group vitamins, E55.9 - Vitamin D deficiency, unspecified, I10 - Essential (primary) hypertension Medications: Refilled levothyroxine 75 mcg PO DAILY 90 tabs 3RF benazepril 40 mg PO DAILY 90 tabs 3RF hydrochlorothiazide 25 mg PO DAILY 90 tabs 3RF I10 - Essential (primary) hypertension
[2025-09-13 10:31] VITALS: BP 128/80; PULSE 74; RESP 16; TEMP 36.6; O2SAT 95; BMI 38.4
--- OUTSIDE RECORDS SUMMARY | 2025-09-13 12:08 | XMS_ITS | Patient Health Record ---
Author Organization [facility] Address [address] [place] [address] Care Team Providers Care Music Rehabilitation Therapist Name Role Phone Elsie Aggarwal MD Primary Care Provider Jeremya Caitie Eric Unavailable [phone] Reason For Referral No Information Medications Medication SIG (Take, Route, Frequency, Duration) Notes Start Date End Date Status hydroCHLOROthiazide 25mg 1 ORAL daily; Duration: -3 Royce-MJ 03/28/2014 Active Benazepril HCl N/A; Duration: -3 Royce-MJ 03/28/2014 Active Problems Problem Type SNOMED Code ICD Code Onset Dates Problem Status W/U Status Risk Notes Problem Obesity (669203032) Obesity, unspecified (278.00) Active confirmed Major Problem Benign essential hypertension (7354030) Essential hypertension, benign (401.1) Active confirmed Major Problem Gynecological examination normal (176135042774780) Routine gynecological examination (V72.31) Active confirmed Diag Plan Of Treatment No Information Insurance Providers Payer Name Payer Address Payer Phone Subscriber Number Group Number Insured Name Patient Relationship to Insured Coverage Start Date Coverage End Date [facility] [address] [address] [place] [address] [id number] ZOE MONDRAGON Self - patient is the insured
== END 2025-09-13 15:27 | disposition home or self-care (01) ==
PROVIDERS: PCP Internal Medicine; Visit Provider Internal Medicine
DX: Z92.89 Personal history of other medical treatment (principal); I10 Essential (primary) hypertension; E55.9 Vitamin D deficiency, unspecified; E03.9 Hypothyroidism, unspecified

== ENCOUNTER → 2025-09-13 10:18 | Outpatient (BNVA) | payer MEDICARE, MEDICAID, SELFPAY | PROVIDERS: PCP Internal Medicine; Visit Provider Internal Medicine | DX: I10 Essential (primary) hypertension (principal); E55.9 Vitamin D deficiency, unspecified; E03.9 Hypothyroidism, unspecified; Z92.89 Personal history of other medical treatment | CPT/HCPCS: 99212 ==

== ENCOUNTER 2025-10-31 08:00 | Outpatient (REF) | payer MEDICARE, MEDICAID, SELFPAY ==
--- OUTSIDE RECORDS SUMMARY | 2025-10-31 08:04 | XMS_ITS | Patient Health Record ---
Author Organization [facility] Address [address] [place] [address] Care Team Providers Care Elevator Supervisor Name Role Phone Elsie Aggarwal MD Primary Care Provider Jeremya Caitie Eric Unavailable [phone] Reason For Referral No Information Medications Medication SIG (Take, Route, Frequency, Duration) Notes Start Date End Date Status hydroCHLOROthiazide 25mg 1 ORAL daily; Duration: -3 Royce-MJ 03/28/2014 Active Benazepril HCl N/A; Duration: -3 Royce-MJ 03/28/2014 Active Problems Problem Type SNOMED Code ICD Code Onset Dates Problem Status W/U Status Risk Notes Problem Obesity (590791222) Obesity, unspecified (278.00) Active confirmed Major Problem Benign essential hypertension (2795499) Essential hypertension, benign (401.1) Active confirmed Major Problem Gynecological examination normal (725598315469643) Routine gynecological examination (V72.31) Active confirmed Diag Plan Of Treatment No Information Insurance Providers Payer Name Payer Address Payer Phone Subscriber Number Group Number Insured Name Patient Relationship to Insured Coverage Start Date Coverage End Date [facility] [address] [address] [place] [address] [id number] ZOE MONDRAGON Self - patient is the insured
[2025-10-31 10:03] LABS: MANUAL DIFF FLAG NO
[2025-10-31 10:15] LABS: Hematocrit 42.7 % (37.0-47.0); Hemoglobin 13.7 g/dl (12.0-16.0); Imm Gran Abs Auto 0.01 X10*3/uL (0.00-0.03); Imm Gran Pct Auto 0.2 % (0.0-0.4); Lymphocytes Absolute Auto 2.1 X10*3/uL (1.2-4.9); Mean Corpuscular HGB Conc 32.1 g/dl (31.0-35.0); Mean Corpuscular Hemoglobin 30.0 pg (27.0-33.0); Mean Corpuscular Volume 93.6 fL (80.0-98.0); NRBC Abs Auto 0.000 X10*3/uL (0.0-0.012); NRBC Pct Auto 0.0 /100WBC (0.0-0.2); Platelet Count 188 X10*3/uL (160-400); Red Blood Count 4.56 X10*6/uL (4.20-5.50); White Blood Count 4.9 X10*3/uL (4.8-10.8)
[2025-10-31 10:17] LABS: Appearance Urine Cloudy; Glucose Urine UA Negative (Negative); PH 5.5 (5.0-9.0); Specific Gravity - Urine 1.025 (1.005-1.025); UMIC TRIGGER UA YES
[2025-10-31 10:46] LABS: Alanine Aminotransferase 21 U/L (0-31); Albumin Level 4.2 g/dL (3.5-5.0); Alkaline Phosphatase 79 U/L (39-117); Anion Gap 11 (12-20); Aspartate Amino Transferase 25 U/L (5-31); Blood Urea Nitrogen 20 mg/dL (9-16); Calcium 9.7 mg/dL (8.4-10.2); Carbon Dioxide 28 mmol/L (22-29); Chloride 107 mmol/L (96-108); Cholesterol 182 mg/dL (<200); Estimated Glomerular Filt Rate > 60; HDL Cholesterol 45 mg/dL (>40); Potassium 4.5 mmol/L (3.3-5.1); Sodium 141 mmol/L (135-145); Total Protein 7.2 g/dL (6.5-8.0); Triglycerides 77 mg/dL (<150)
[2025-10-31 11:15] LABS: Folate 8.5 ng/mL (> or = 4.0); Vitamin B12 343 pg/mL (200-900)
== END 2025-10-31 08:01 | disposition home or self-care (01) ==
LOC: HO.HMGCLDS 08:00
PROVIDERS: PCP Internal Medicine; Visit Provider Internal Medicine
DX: I10 Essential (primary) hypertension (principal); E53.8 Deficiency of other specified B group vitamins; E03.9 Hypothyroidism, unspecified; E55.9 Vitamin D deficiency, unspecified; Z13.1 Encounter for screening for diabetes mellitus
CPT/HCPCS: 36415; 80053; 80061; 81001; 82306; 82607; 82746; 83036; 85025